=== PATIENT | female | born 1980 | race Caucasian/White ===

== ENCOUNTER 2016-12-05 06:21 | Day surgery (SDC) | payer BC ==
[~2016-12-05 06:21] MED LIST: IBUPROFEN200 M2 PO; LEXAPRO10 M2 PO; SYNTHROID PO
[2016-12-05 07:00] LABS: BASO % 0.6 % (0-2); EOS % 1.8 % (0-7); EOSINOPHIL ABSOLUTE COUNT 0.1 tho/cmm (0.0-0.7); HCT-HEMATOCRIT 41.1 % (34.0-49.0); HGB-HEMOGLOBIN 13.7 gm/dl (12.0-15.5); LYMPH % 38.3 % (20-45); LYMPH ABSOLUTE COUNT 2.5 tho/cmm (0.8-4.5); MCH (MEAN CORPUSCULAR HGB) 28.2 pg (28.0-32.0); MCHC MEAN CORPUSCULAR HGB CONC 33.3 % (32.0-36.0); MCV (MEAN CELL VOLUME) 84.7 fl (82.0-96.0); MEAN PLATELET VOLUME 9.8 cmc (9.4-12.4); MONO % 6.9 % (0-12); MONOCYTE ABSOLUTE COUNT 0.5 tho/cmm (0.0-1.2); NEUTROPHIL ABSOLUTE COUNT 3.4 tho/cmm (1.6-8.0); NEUTROPHIL-AUTOMATED 3.4 tho/cmm (1.6-8.0); NEUTROPHILS % 52.4 % (40-80); PLATELET COUNT 269 tho/cmm (150-450); RED BLOOD COUNT 4.85 mil/cmm (4.00-5.20); RED CELL DISTRIBUTION WIDTH 13.3 % (12.4-16.4); WHITE BLOOD COUNT 6.5 tho/cmm (4.0-10.0)
== END 2016-12-05 13:40 ==
LOC: SRG 06:21 → SHSB 06:22 → ORW 10:30 → PACU 11:47 → SHSB 12:20
PROVIDERS: Anesthesiology
PROC: 0HBT0ZX Excision of Right Breast, Open Approach, Diagnostic (ICD-10-PCS; principal; 2016-12-05)
DX: N60.91 Unspecified benign mammary dysplasia of right breast (principal); R92.0 Mammographic microcalcification found on diagnostic imaging of breast; E89.0 Postprocedural hypothyroidism; Z79.899 Other long term (current) drug therapy; Z80.3 Family history of malignant neoplasm of breast
CPT/HCPCS: J0690; J2250; J3010